=== PATIENT | male | born 2000 | race Caucasian/White ===

== ENCOUNTER 2022-07-03 08:43 | Emergency (ER) | payer OTHER ==
[2022-07-03] MEDS ORDERED: Ketorolac 30 MG/ML SDV IVPUSH ONE (09:01)
[2022-07-03] MEDS ORDERED: Sodium Chloride 0.9% 10 ML Syringe FLUSH PRN (09:01)
[2022-07-03] MEDS ORDERED: Ondansetron 4 MG/2 ML SDV IVPUSH ONE (09:01)
[2022-07-03] MEDS ORDERED: HYDROmorphone 0.5 MG/0.5 ML Syringe IVPUSH ONE (09:08)
[2022-07-03] MEDS ORDERED: Iopamidol 612 MG/ML 100 ML Bottle IV PRN (09:12)
[2022-07-03] MEDS ORDERED: Sodium Chloride 0.9% 50 ML IV ONE (09:12)
[2022-07-03] MEDS ORDERED: Sodium Chloride 0.9% 1,000 ML IV SCH (09:15)
[2022-07-03 09:19] LABS: ESTIMATED GFR 79 mL/min (>60)
== END 2022-07-03 12:19 | disposition home or self-care (01) ==
LOC: JP.ED 08:43
DX: I88.0 Nonspecific mesenteric lymphadenitis (principal)
CPT/HCPCS: 36415; 74177; 80053; 81001; 82009; 82800; 83605; 83690; 85025; 86140; 96374; 96375; 99284; J1170; J1885; J2405; J3490; J7030; Q9967